=== PATIENT | female | born 1980 | race Hispanic/Latino ===

== ENCOUNTER 2022-04-10 13:24 | Day surgery (SDC) | payer BC ==
[2022-04-10 13:56] VITALS: BMI 33.5
[2022-04-10 15:04] LABS: ALT (SGPT) 19 U/L (8-55); AST (SGOT) 21 U/L (5-34); Albumin 3.4 g/dL (3.5-5.0); Alkaline Phosphatase 165 U/L (40-110); Anion Gap 13 mmol/L (10-20); BUN (Urea Nitrogen) 16 mg/dL (7.0-18.7); Bilirubin, Total 0.2 mg/dL (0.2-1.2); Calc. Creatinine Clearance 120 mL/min (70-130); Carbon Dioxide 20 mmol/L (22-29); Chloride 106 mmol/L (98-107); Estimated GFR 93; Globulin 3.4 g/dL (2.4-3.5); Glucose 87 mg/dL (70-105); Potassium 4.1 mmol/L (3.5-5.1); Protein, Total 6.8 g/dL (6.0-8.3); Sodium 135 mmol/L (136-145)
[2022-04-10 15:09] LABS: Mean Corpuscular HGB CONC 34.9 g/dL (32.0-36.0); Mean Corpuscular Hemoglobin 29.7 pg (27.0-33.0); Mean Corpuscular Volume 85.1 fl (81.6-98.3); Mean Platelet Volume 10.8 fl (7.4-10.4); Platelet Count 240 10x3/uL (150-450); RBC Distribution Width 13.8 % (11.5-14.5); White Blood Cell (WBC) Count 7.6 10x3/uL (3.5-10.5)
== END 2022-04-10 16:56 | disposition home or self-care (01) ==
LOC: CSHLD/OP 13:24
PROVIDERS: ATTEND Obstetrics & Gynecology
DX: O13.3 Gestational [pregnancy-induced] hypertension without significant proteinuria, third trimester (principal); O09.523 Supervision of elderly multigravida, third trimester; Z79.82 Long term (current) use of aspirin; Z79.899 Other long term (current) drug therapy; Z3A.38 38 weeks gestation of pregnancy
CPT/HCPCS: 36415; 80053; 82570; 84156; 85027; 99284

== ENCOUNTER 2022-04-12 13:30 | Inpatient (IN) | payer BC ==
[~2022-04-12 13:30] MED LIST: Bupivacaine HCl 0.5%/Epinephrine 1:200,000/PF 30 ml Vial ONE
[2022-04-12 14:19] VITALS: BMI 33.8
[2022-04-12] MEDS ORDERED: hydrALAZINE 20 MG/ML VIAL SLOW IVP PRN ×2 (14:32→16:47)
[2022-04-12 14:51] LABS: Bilirubin Neg (Negative); Blood, Urine Negative (Negative); CAUTI Indications for Culture Pregnancy; Clarity Clear (Clear); Glucose, Urine (Dipstick) Normal (Negative); Ketone, Urine Negative (Negative); Leukocyte Negative (Negative); Nitrite Negative (Negative); Protein, Urine (Dipstick) Negative (Neg-Trace); Urobilinogen Normal mg/dL (Less than 2); pH, Urine 6.5 (5.0-9.0)
[2022-04-12 14:54] LABS: Urine Culture Reflex Yes Yes
[2022-04-12 15:22] LABS: Bacteria/HPF 1+ HPF (None Seen); RBC/HPF 0-3 HPF (0-3); Squamous Epithelial 0-3 HPF (0-3); WBC/HPF 0-3 HPF (0-3)
[2022-04-12 15:34] LABS: #Monocytes 0.4 10x3/uL (0.0-1.1); #Neutrophils 4.9 10x3/uL (1.5-8.4); %Basophils 0.3 % (0.0-2.0); %Eosinophils 0.2 % (0.0-6.0); %Lymphocytes 17.6 % (18.0-47.0); %Monocytes 6.4 % (0.0-10.0); ALT (SGPT) 19 U/L (8-55); AST (SGOT) 22 U/L (5-34); Albumin 3.3 g/dL (3.5-5.0); Alkaline Phosphatase 170 U/L (40-110); Anion Gap 12 mmol/L (10-20); BUN (Urea Nitrogen) 17 mg/dL (7.0-18.7); Bilirubin, Total 0.2 mg/dL (0.2-1.2); Calc. Creatinine Clearance 123 mL/min (70-130); Calcium 9.1 mg/dL (7.8-10.44); Carbon Dioxide 21 mmol/L (22-29); Chloride 106 mmol/L (98-107); Estimated GFR 95; Globulin 3.5 g/dL (2.4-3.5); Glucose 88 mg/dL (70-105); Hemoglobin 11.1 g/dL (12.0-15.5); Mean Corpuscular HGB CONC 35.1 g/dL (32.0-36.0); Mean Corpuscular Volume 85.4 fl (81.6-98.3); Mean Platelet Volume 11.1 fl (7.4-10.4); Platelet Count 245 10x3/uL (150-450); Protein, Total 6.8 g/dL (6.0-8.3); RBC Distribution Width 13.7 % (11.5-14.5); Sodium 135 mmol/L (136-145); White Blood Cell (WBC) Count 6.5 10x3/uL (3.5-10.5)
[2022-04-12] MEDS ORDERED: Magnesium Sulfate 20 gm/500 ml 20 GM/500 ML BAG ONE (15:36)
[2022-04-12] MEDS ORDERED: Diphenoxylate HCl/Atropine Tablet PO PRN (15:54)
[2022-04-12] MEDS ORDERED: Ibuprofen 800 MG TAB PO PRN (15:54)
[2022-04-12] MEDS ORDERED: Ondansetron PF 4 MG/2 ML Vial IVP PRN ×2 (15:54→23:11)
[2022-04-12] MEDS ORDERED: Lidocaine 1% (PF) 30 ML VIAL SC PRN ×2 (15:54→16:51)
[2022-04-12] MEDS ORDERED: Misoprostol 200 MCG TAB PR PRN (15:54)
[2022-04-12] MEDS ORDERED: Acetaminophen 500 MG TAB PO PRN (15:54)
[2022-04-12] MEDS ORDERED: Carboprost 250 MCG/ML AMP IM PRN (15:54)
[2022-04-12] MEDS ORDERED: Promethazine HCl 25 MG/ML VIAL IM PRN ×2 (15:54→23:11)
[2022-04-12] MEDS ORDERED: NS w/ Oxytocin 30 units 500 ML IV SCH ×3 (16:00→17:00)
[2022-04-12] MEDS ORDERED: Lactated Ringer's 1,000 ML IV SCH (16:00)
[2022-04-12] MEDS ORDERED: Calcium Gluc 4.6 MEQ/10 ML (100 MG/ML) SLOW IVP PRN ×2 (16:47→16:51)
[2022-04-12] MEDS ORDERED: Lorazepam 2 MG/ML VIAL SLOW IVP PRN ×2 (16:47→16:51)
[2022-04-12 17:02] LABS: HBSAg Index 0.18 S/CO (0-0.99); Hep B Surf Ag Non-Reactive S/CO (NonReactive)
[2022-04-12 17:03] LABS: Syphilis Antibody Nonreactive (Nonreactive); Syphilis Antibody Index 0.04 S/CO (<1.00 Non-Reactive)
[2022-04-12 17:16] LABS: SARS-CoV-2 NAA Rapid Test Not Detected (NotDetected)
[2022-04-12] MEDS ORDERED: Fentanyl 2 mcg/Bup 0.1% Cadd 100 ML ONE (21:57)
[2022-04-12] MEDS ORDERED: ePHEDrine Sulfate 50 MG/10 ML VIAL SLOW IVP PRN (23:11)
[2022-04-12] MEDS ORDERED: Lactated Ringer's 500 ML IV PRN (23:11)
[2022-04-12] MEDS ORDERED: Moisturizing Cream (Eucerin) 113 GM JAR TOP PRN (23:11)
[2022-04-12] MEDS ORDERED: Naloxone HCl 0.4 mg/ml Vial IVP PRN ×2 (23:11)
[2022-04-12] MEDS ORDERED: diphenhydrAMINE 50 MG/ML VIAL IVP PRN (23:11)
[2022-04-12] MEDS ORDERED: Communication Order-Pharmacy FS SCH (23:15)
[2022-04-13] MEDS: Magnesium Sulfate 20 gm/500 ml 20 GM/500 ML BAG IVPB SCH ×2 (00:20→10:40)
[2022-04-13] MEDS: Acetaminophen 325 MG TAB PO PRN ×2 (00:20→05:27)
[2022-04-13] MEDS: Fentanyl 2 mcg/Bupivacaine 0.1% Cassette 100 ML EPIDURAL SCH ×3 (07:21→14:45)
[2022-04-13] MEDS ORDERED: Calcium Carbonate 500 MG ChewTAB PO SCH ×2 (08:00→08:15)
[2022-04-13] MEDS ORDERED: Carboprost 250 MCG/ML AMP ONE (16:58)
[2022-04-13 17:59] LABS: RapidComm Collect By CBN
[2022-04-13 18:00] LABS: RapidComm Collect By CBN; pH (Cord, venous) 7.391 (7.250-7.350)
[2022-04-13] MEDS ORDERED: Misoprostol 200 MCG TAB VAG PRN (18:09)
[2022-04-13] MEDS ORDERED: Boostrix 0.5 ML (Tdap) VIAL (>/=7 yrs of age) IM ONE (18:09)
[2022-04-13] MEDS ORDERED: Milk Of Magnesia 30 ML UDCUP PO PRN (18:09)
[2022-04-13] MEDS ORDERED: HYDROcodone/Acetaminophen 5/325 mg Tablet PO PRN ×2 (18:09)
[2022-04-13] MEDS ORDERED: hydrALAZINE 20 MG/ML VIAL SLOW IVP PRN (18:09)
[2022-04-13] MEDS ORDERED: Benzocaine-Menthol 82.5 ML CAN TOP PRN (18:09)
[2022-04-13] MEDS ORDERED: Bisacodyl 10 MG SUPP PR PRN (18:09)
[2022-04-13] MEDS ORDERED: NS w/ Oxytocin 30 units 500 ML IV SCH (18:15)
[2022-04-13] MEDS ORDERED: Lidocaine 1% (PF) 30 ML VIAL ONE ×2 (19:52→21:00)
[2022-04-13 22:44] LABS: Hemoglobin 9.5 g/dL (12.0-15.5)
[2022-04-13 23:02] LABS: Magnesium 7.3 mg/dL (1.6-2.6)
[2022-04-14] MEDS: Ibuprofen 800 MG TAB PO SCH ×3 (03:14→17:18)
[2022-04-14] MEDS: Docusate 100 MG CAP PO SCH ×3 (03:38→21:54)
[2022-04-14] MEDS ORDERED: Ferrous Sulfate 325 MG TAB PO SCH ×2 (08:00→17:45)
[2022-04-14] MEDS ORDERED: Prenatal Vitamin 1 TAB PO SCH ×2 (09:00→17:45)
[2022-04-14] MEDS ORDERED: HYDROcodone/Acetaminophen 5/325 mg Tablet PO PRN ×2 (17:38)
[2022-04-14] MEDS ORDERED: Lanolin Ointment 7 GM TUBE TOP PRN (17:38)
[2022-04-14] MEDS ORDERED: hydrALAZINE 20 MG/ML VIAL SLOW IVP PRN (17:38)
[2022-04-14] MEDS ORDERED: Bisacodyl 10 MG SUPP PR PRN (17:38)
[2022-04-14] MEDS ORDERED: Boostrix 0.5 ML (Tdap) VIAL (>/=7 yrs of age) IM ONE (17:38)
[2022-04-14] MEDS ORDERED: Benzocaine-Menthol 82.5 ML CAN TOP PRN (17:38)
[2022-04-14] MEDS ORDERED: Milk Of Magnesia 30 ML UDCUP PO PRN (17:38)
[2022-04-14] MEDS ORDERED: Docusate 100 MG CAP PO SCH (17:45)
[2022-04-14] MEDS ORDERED: Carboprost 250 MCG/ML AMP IM PRN (20:23)
[2022-04-15] MEDS: Ibuprofen 800 MG TAB PO SCH ×3 (02:44→18:13)
[2022-04-15 04:17] LABS: Hemoglobin 7.1 g/dL (12.0-15.5)
[2022-04-15] MEDS: Prenatal Vitamin 1 TAB PO SCH (08:43)
[2022-04-15] MEDS: Ferrous Sulfate 325 MG TAB PO SCH ×2 (08:43→18:14)
[2022-04-15] MEDS: Docusate 100 MG CAP PO SCH ×2 (08:44→23:47)
[2022-04-16] MEDS ORDERED: Ibuprofen 800 MG TAB PO SCH (06:00)
[2022-04-16 06:14] VITALS: TEMP 98.3
[2022-04-16 07:36] VITALS: BP 132/75
[2022-04-16] MEDS: Docusate 100 MG CAP PO SCH (08:32)
[2022-04-16] MEDS: Prenatal Vitamin 1 TAB PO SCH (08:32)
[2022-04-16] MEDS: Ferrous Sulfate 325 MG TAB PO SCH (08:32)
== END 2022-04-16 10:00 | disposition home or self-care (01) | DRG 807 ==
LOC: CSHLD/OP 13:30 → CSHLD 15:54 → CSHPP 04-14 17:30
PROVIDERS: ADMIT Obstetrics & Gynecology; ATTEND Obstetrics & Gynecology
PROC: 3E033VJ Introduction of Other Hormone into Peripheral Vein, Percutaneous Approach (ICD-10-PCS; 2022-04-12)
PROC: 10E0XZZ Delivery of Products of Conception, External Approach (ICD-10-PCS; principal; 2022-04-13)
PROC: 0HQ9XZZ Repair Perineum Skin, External Approach (ICD-10-PCS; 2022-04-13)
PROC: 0UQMXZZ Repair Vulva, External Approach (ICD-10-PCS; 2022-04-13)
PROC: 10907ZC Drainage of Amniotic Fluid, Therapeutic from Products of Conception, Via Natural or Artificial Opening (ICD-10-PCS; 2022-04-13)
PROC: 10H07YZ Insertion of Other Device into Products of Conception, Via Natural or Artificial Opening (ICD-10-PCS; 2022-04-13)
DX: O13.4 Gestational [pregnancy-induced] hypertension without significant proteinuria, complicating childbirth (principal); Z37.0 Single live birth; Z20.822 Contact with and (suspected) exposure to COVID-19; Z3A.38 38 weeks gestation of pregnancy; Z79.82 Long term (current) use of aspirin; O72.1 Other immediate postpartum hemorrhage; O71.82 Other specified trauma to perineum and vulva; O70.0 First degree perineal laceration during delivery; O14.14 Severe pre-eclampsia complicating childbirth; O69.81X0 Labor and delivery complicated by cord around neck, without compression, not applicable or unspecified; D50.0 Iron deficiency anemia secondary to blood loss (chronic); O90.81 Anemia of the puerperium
CPT/HCPCS: 36415; 51702; 80053; 81001; 82570; 82805; 83735; 84156; 85014; 85018; 85025; 85027; 86780; 86850; 86900; 86901; 87086; 87340; 99284; 99285; J0360; J2590; J3475; U0002

== ENCOUNTER 2023-10-03 10:02 | Outpatient (CLI) | payer BC | END 2023-10-03 10:03 | disposition home or self-care (01) | LOC: CSHMAMMO 10:02 | PROVIDERS: ATTEND Advanced Practice Midwife | DX: Z12.31 Encounter for screening mammogram for malignant neoplasm of breast (principal) | CPT/HCPCS: 77063; 77067 ==